=== PATIENT | male | born 1990 | race Caucasian/White ===

== ENCOUNTER → 2021-01-20 | Outpatient (CLI) | payer OTHER ==
--- NOTE | 2021-01-20 17:55 | Diagnostic Imaging Report ---
INDICATION: A lump in the upper outer left breast. Patient denies feeling the lump at this time. Sonographic interrogation of the area of lump in the upper-outer left breast was performed. No solid or cystic mass is detected. No sonographic abnormality is seen. IMPRESSION: BI-RADS Category 1 No sonographic abnormality is identified. Continued close clinical and self breast exams are recommended to confirm stability. Dictated by: Dictated on workstation # [id number]
== END ==
LOC: RAD 14:06
PROVIDERS: ATTEND Nurse Practitioner
DX: N63.21 Unspecified lump in the left breast, upper outer quadrant (principal)
CPT/HCPCS: 76642